=== PATIENT | female | born 1995 | race Caucasian/White ===

== ENCOUNTER 2020-06-25 10:02 | Emergency (ER) | payer OTHER, SELFPAY ==
[2020-06-25 10:12] VITALS: BP 125/74; PULSE 84; RESP 15; TEMP 36.6; O2SAT 98
--- NOTE | 2020-06-25 10:12 | DI.RAD_ITS ---
Exam(s) XR ANKLE RT COMPLETE XR FOOT RT COMPLETE EXAM: XR FOOT RT COMPLETE and XR ankle RT complete CLINICAL HISTORY: pain s/p fall yesterday. TECHNIQUE: 2D digital imaging was performed. COMPARISON: No priors for comparison. FINDINGS: BONES: No acute fracture is present. No bony destructive lesion is seen. JOINTS: No dislocation present. SOFT TISSUE: Normal. IMPRESSION: No acute fractures or dislocations in the right foot and ankle. DATA REPOSITORY: RADIATION DOSE DELIVERED:
--- NOTE | 2020-06-25 10:14 | ED.GENADUL_ITS ---
Discharge Plan Disposition Patient Disposition: HOME Condition: Stable Discharge Details Chief Complaint: Orthopedic Clinical Impression: Right ankle sprain, Right ankle strain Primary Care Provider: Unknown,Unknown ED Provider: Ernst Richmodn Discharge Instructions Instructions: Foot Sprain (ED) Additional Instructions: you can take 400mg ibuprofen every 4 hours and 650mg tylenol every 6 hours for pain if pain continues in a week follow up with a primary care provider if you have severe worsening pain, or new pain such as abdomen pain or chest pain return to the emergency department Stand Alone Forms: Work Release Medical Decision Making 24 yo female who denies chronic medical problems comes in with right foot and ankle pain. She states she was drinking alcohol yesterday and tripped going down stairs on the last two steps and hurt her foot, is not sure if she inverted it or not. Denies hitting head and remembers the even clearly. She states she went to bed and woke up and was still having pain in the foot with walking so came here. Denies head pain, chest pain, abdomen pain, arm pain or back pain. No pain in the left leg. She has tenderness over lateral mid right foot without visible or palpable deformity. Also has lateral malleolus tenderness. limited range of motion of the ankle due to pain. Normal pulses and sensation. Suspect contusion vs sprain but will xray to evaluate for fracture. xrays negative on my read and vrad reads. She still has significant pain in the lateral foot when trying to bear weight. I recommended performing a cat scan to evaluate further for fracture though my suspicion given lack of swelling on exam is low. She has capacity to make her own decisions and currently declines having a cat scan. She will be given crutches and a walking boot and I advised to follow up with primary care if pain continues and return precautions given and also advised she can return at any time if she changes her mind on having the can scan. Differential Diagnosis Differential Diagnosis: fracture, sprain, contusion, strain Imaging Data Radiologic Study: Attestation: I personally reviewed and interpreted this imaging study as follows: Imaging: X-Ray My impression: no acute findings foot xray Radiologic Study #2: Attestation: I personally reviewed and interpreted this imaging study as follows: Imaging: X-Ray My impression: no acute findings ankle xray HPI General Mode of arrival: wheelchair . Date/Time Provider Initiated Documentation: 06/25/20 10:03 . Limitations to Documentation: no limitations . Information obtained by: patient . History of Present Illness 24 year old F presents to the emergency department with the chief complaint of right foot pain, described as moderate, Quality is described as aching, and is localized to the right and lower extremity. Patient reports no radiation. Patient started experiencing this day(s) (1) and it has been constant. Rest improves symptom(s), Movement worsens symptoms . Patient notes no other sym ptoms.. Patient did receive the following treatments prior to arrival, none Related Data Allergies Allergy/AdvReac Type Severity Reaction Status Date / Time cat dander Allergy Mild Other (See Unverified 06/25/20 10:15 Comment) Review of Systems All systems reviewed & are unremarkable except as noted in HPI and below Constitutional Constitutional: Denies chills and Denies fever(s) Cardiovascular Cardiovascular: Denies chest pain and Denies dyspnea Respiratory Respiratory: Denies cough and Denies dyspnea Gastrointestinal Gastrointestinal: Denies abdominal pain, Denies nausea and Denies vomiting Musculoskeletal Musculoskeletal: Denies joint swelling PFSH Social History Smoking risk assessment performed?: No Exam Const General: no acute distress Orientation: alert [facility] Head: normal to inspection Ears: external ears normal General nose exam: external nose normal Mouth: moist mucous membranes Eyes General: appearance normal, both eyes and all related structures Neck Neck: normal visual inspection Resp Effort & Inspection: normal respiratory effort and able to speak in complete sentences Cardio Rate: regular rate Skin General skin exam: no rashes or lesions noted Neuro General: patient alert and patient oriented x3 Extrem General: capillary refill normal Psych Mental Status: mental status grossly normal
[2020-06-25] MEDS: Ibuprofen 600 MG TAB PO (10:17)
--- NOTE | 2020-06-25 10:55 | DI.VRAD_ITS ---
PROCEDURE INFORMATION: Exam: XR Right Ankle Exam date and time: 06/25/2020 10:26 AM Age: 24 years old Clinical indication: Other: Pain S/P fall yesterday TECHNIQUE: Imaging protocol: XR Right ankle. Views: 3 or more views. COMPARISON: No relevant prior studies available. FINDINGS: Bones/joints: Normal. Soft tissues: Normal. IMPRESSION: No acute findings. Dictated and Authenticated by: Eric Bailey MD. Ordering:KAYE Dukes MD
--- NOTE | 2020-06-25 10:56 | DI.VRAD_ITS ---
PROCEDURE INFORMATION: Exam: XR Right Foot Exam date and time: 06/25/2020 10:26 AM Age: 24 years old Clinical indication: Other: Pain S/P fall yesterday TECHNIQUE: Imaging protocol: XR Right foot. Views: 3 or more views. COMPARISON: No relevant prior studies available. FINDINGS: Bones/joints: Normal. Soft tissues: Normal. IMPRESSION: No acute findings. Dictated and Authenticated by: Eric Bailey MD. Ordering:KAYE Dukes MD
[2021-01-01 19:06] LABS: COVID-19 RT-PCR UVMMC Result Negative (Negative)
== END 2020-06-25 11:23 | disposition home or self-care (01) ==
PROVIDERS: Internal Medicine; Emergency Provider Emergency Medicine
DX: S93.491A Sprain of other ligament of right ankle, initial encounter (principal); S96.811A Strain of other specified muscles and tendons at ankle and foot level, right foot, initial encounter; W18.43XA Slipping, tripping and stumbling without falling due to stepping from one level to another, initial encounter
CPT/HCPCS: 29515; 99284; U0003; 73610; 73630; 99283